=== PATIENT | female | born 1995 | race Caucasian/White ===

== ENCOUNTER 2016-09-23 19:07 | Emergency (ER) | payer SELFPAY ==
[~2016-09-23] VITALS: Ht 175.3 cm; Wt 200.0 kg
[2016-09-23 19:15] VITALS: Ht 175.3 cm; Wt 200.0 kg
== END 2016-09-23 19:14 | disposition left against medical advice (07) ==
LOC: E/R 19:07
DX: Z53.21 Procedure and treatment not carried out due to patient leaving prior to being seen by health care provider (principal)

== ENCOUNTER 2016-09-23 19:35 | Inpatient (IN) | payer MEDICAID, OTHER ==
[~2016-09-23] VITALS: Ht 175.3 cm; Wt 204.0 kg
[2016-09-23] MEDS ORDERED: LACTATED RINGER'S 1,000 ML IV SCH (20:27)
[2016-09-23] MEDS ORDERED: MAGNESIUM SULFATE 4 GM/100 ML 100 ML IV ONE (20:30)
[2016-09-23 21:46] LABS: BASOPHILS % 0.2 % (0.0-2.0); EOSINOPHILS # 0.1 10^3/ul (0.0-0.5); EOSINOPHILS % 0.6 % (0.0-7.0); HEMATOCRIT 36.1 % (37.0-47.0); HEMOGLOBIN 11.7 g/dl (12.0-16.0); LYMPHOCYTES # 3.1 10^3/ul (0.8-2.9); LYMPHOCYTES % 25.7 % (15.0-51.0); MEAN CORPUSCULAR HEMOGLOBIN 27.4 pg (29.0-33.0); MEAN CORPUSCULAR HGB CONC 32.4 g/dl (32.0-37.0); MEAN CORPUSCULAR VOLUME 84.5 fl (82.0-101.0); MEAN PLATELET VOLUME 10.7 fl (7.4-10.4); MONOCYTE # 0.8 10^3/ul (0.3-0.9); MONOCYTES % 6.4 % (0.0-11.0); NEUTROPHIL # 8.1 10^3/ul (1.6-7.5); NEUTROPHILS % 66.9 % (39.0-77.0); PLATELET COUNT 312 10^3/UL (140-415); RED BLOOD COUNT 4.27 10^6/ul (4.20-5.40); RED CELL DISTRIBUTION WIDTH 15.9 % (11.5-14.5); WHITE BLOOD COUNT 12.2 10^3/ul (4.8-10.8)
[2016-09-23 21:54] LABS: ADD UMIC YES; UR ASCORBIC ACID NEGATIVE (NEGATIVE); UR BACTERIA FEW /HPF (NONE SEEN); UR BILIRUBIN (Dip) NEGATIVE (NEGATIVE); UR BLOOD (Dip) NEGATIVE (NEGATIVE); UR CLARITY CLOUDY (CLEAR); UR COLOR YELLOW (YELLOW); UR GLUCOSE (Dip) 1+ mg/dL (NEGATIVE); UR KETONES (Dip) NEGATIVE (NEGATIVE); UR LEUKOCYTE ESTERASE (Dip) NEGATIVE Leu/ul (NEGATIVE); UR MUCUS FEW /HPF (NONE SEEN); UR NITRITE (Dip) NEGATIVE (NEGATIVE); UR RBC 2 /HPF (0-5); UR SPECIFIC GRAVITY (Dip) 1.034 (1.003-1.030); UR SQUAMOUS EPITHELIAL CELL FEW /HPF (FEW); UR TOTAL PROTEIN (Dip) 3+ mg/dl (NEGATIVE); UR UROBILINOGEN (Dip) NEGATIVE (NEGATIVE)
[2016-09-23 22:07] LABS: INR 0.87; PARTIAL THROMBOPLASTIN TIME 27.4 Sec (25.0-35.0); PROTIME 11.8 Sec (12.2-14.2); PT RATIO 0.9
[2016-09-23 22:09] LABS: ALBUMIN 2.7 g/dl (3.3-4.9); ALBUMIN/GLOBULIN RATIO 0.81; BILIRUBIN,INDIRECT 0.1 mg/dl (0-1.1); BILIRUBIN,TOTAL 0.1 mg/dl (0.2-1.3); CALCIUM 8.7 mg/dl (8.4-10.2); CREATININE 0.7 mg/dl (0.44-1.00); URIC ACID 5.5 mg/dl (3.1-7.9)
[2016-09-23] MEDS: MAGNESIUM SULFATE 20 GM/500 ML 500 ML IV SCH (22:28)
--- NOTE | 2016-09-23 22:28 | RADRPT ---
PROCEDURE: Obstetrical ultrasound for biophysical profile CLINICAL INDICATION: Biophysical profile. . TECHNIQUE: Obstetrical ultrasound of the uterus for biophysical profile. Transabdominal views are obtained. COMPARISON: 06/12/2016 FINDINGS: Visualization is markedly degraded due to patient body habitus attenuation. IMPRESSION: Visualization is markedly degraded due to patient body habitus attenuation. RPTAT: AADD .Darrell Franco MD, MD Date Time Electronically viewed and signed by .Darrell Franco MD, on 09/23/2016 22:28 .B/
[2016-09-23] MEDS ORDERED: LABETALOL HCL 20MG INJ IV ONE (22:30)
[2016-09-23] MEDS ORDERED: LACTATED RINGER'S 1,000 ML IV PRN (23:19)
[2016-09-23] MEDS ORDERED: OXYTOCIN 30 UNITS/LR 500 ML IV PRN (23:30)
[2016-09-23] MEDS ORDERED: LIDOCAINE 1% (MPF) 30 ML INJ INJ PRN (23:30)
[2016-09-23] MEDS ORDERED: OXYTOCIN 30 UNITS/LR 500 ML IV SCH ×2 (23:30)
[2016-09-23] MEDS ORDERED: BUTORPHANOL 2 MG INJ IV PRN ×2 (23:30)
[2016-09-23] MEDS ORDERED: AMPICILLIN 2 GM/NS (PMX) 100 ML IV ONE (23:30)
[2016-09-23] MEDS ORDERED: MISOPROSTOL 200 MCG TAB PR PRN (23:30)
[2016-09-23] MEDS ORDERED: IBUPROFEN 600 MG TAB PO PRN (23:30)
[2016-09-23] MEDS ORDERED: METHYLERGONOVINE 0.2 MG INJ IM PRN (23:30)
[2016-09-23] MEDS ORDERED: CARBOPROST 250 MCG INJ IM PRN (23:30)
[2016-09-24] MEDS ORDERED: LABETALOL HCL 20MG INJ IV ONE ×2
[2016-09-24] MEDS ORDERED: hydrALAzine 20 MG INJ IV ONE ×2 (00:30→11:30)
[2016-09-24] MEDS ORDERED: SALINE 0.65% 45 ML NAS SPRAY NASAL PRN (01:30)
[2016-09-24 02:30] LABS: BASOPHILS % 0.1 % (0.0-2.0); EOSINOPHILS % 0.1 % (0.0-7.0); HEMATOCRIT 37.7 % (37.0-47.0); HEMOGLOBIN 12.2 g/dl (12.0-16.0); LYMPHOCYTES # 3.4 10^3/ul (0.8-2.9); LYMPHOCYTES % 20.3 % (15.0-51.0); MEAN CORPUSCULAR HEMOGLOBIN 27.3 pg (29.0-33.0); MEAN CORPUSCULAR HGB CONC 32.4 g/dl (32.0-37.0); MEAN CORPUSCULAR VOLUME 84.3 fl (82.0-101.0); MONOCYTES % 6.2 % (0.0-11.0); NEUTROPHIL # 12.2 10^3/ul (1.6-7.5); NEUTROPHILS % 72.9 % (39.0-77.0); PLATELET COUNT 351 10^3/UL (140-415); RED BLOOD COUNT 4.47 10^6/ul (4.20-5.40); RED CELL DISTRIBUTION WIDTH 15.9 % (11.5-14.5); WHITE BLOOD COUNT 16.7 10^3/ul (4.8-10.8)
[2016-09-24 02:44] LABS: INR 0.87; PROTIME 11.8 Sec (12.2-14.2); PT RATIO 0.9
[2016-09-24 02:45] LABS: PARTIAL THROMBOPLASTIN TIME 32.3 Sec (25.0-35.0)
[2016-09-24] MEDS ORDERED: GUAIFENESIN 20 MG/ML 5ML CUP PO ONE (03:30)
[2016-09-24] MEDS ORDERED: DIPHENHYDRAMINE 50 MG INJ IV PRN (04:30)
[2016-09-24] MEDS ORDERED: FENTAnyl 2MCG/ML-ROPIV 0.2% 100 ML BAG EPI SCH ×2 (04:30→09:30)
[2016-09-24] MEDS ORDERED: ONDANSETRON 4 MG INJ IV PRN ×2 (04:30→22:30)
[2016-09-24] MEDS ORDERED: NALOXONE (0.4 MG/ML) INJ IV PRN ×2 (04:30→09:30)
[2016-09-24] MEDS ORDERED: EPHEDrine SULFATE 50 MG/5 ML SYG IV PRN (04:30)
[2016-09-24] MEDS: AMPICILLIN 1 GM/NS (PMX) 50 ML IV SCH ×6 (04:43→19:32)
[2016-09-24] MEDS ORDERED: hydrALAzine 20 MG INJ IV PRN (05:15)
[2016-09-24] MEDS ORDERED: FENTAnyl 2MCG/ML-ROPIV 0.2% 100 ML ONE (05:43)
[2016-09-24 06:29] VITALS: Ht 175.3 cm; Wt 204.0 kg
[2016-09-24] MEDS: MAGNESIUM SULFATE 20 GM/500 ML 500 ML IV SCH ×2 (07:36→19:41)
[2016-09-24] MEDS: FENTAnyl 2MCG/ML-ROPIV 0.2% 100 ML BAG EPI SCH ×2 (12:08→21:17)
[2016-09-24] MEDS ORDERED: POTASSIUM CHLORIDE 40 MEQ in LACTATED RINGER'S 1,000 ML IV SCH (13:30)
[2016-09-24] MEDS ORDERED: LABETALOL HCL 20MG INJ IV PRN (13:30)
[2016-09-24] MEDS ORDERED: OXYTOCIN 30 UNITS/LR 500 ML IV SCH ×3 (16:30→22:30)
--- NOTE | 2016-09-24 18:51 | HP ---
Date/Time of Note Date/Time of Note DATE: 09/24/16 TIME: 18:34 OB - History Hx of Present Free Text/Dictation 20 y.o primigravida at 39w6d whos's bp 190/109 with breathing difficulty in labor ,eyal q2-4min apart . according to patient had care ,denies any hx of elevated BP during or prior to .\ unable to obtain BPP due to body habitus, unable to have external monitor due to bodyhabitus. no lab is available on admission admitted for control of BP imediatly and further care for labor management. Chief Complaint: uterine contractions, high BP Estimated Due Date: Sep 25, 2016 : 1 Para: 0 Spontaneous : 0 Therapeutic : 0 Ultrasounds: No ultrasounds Obstetrical Complications: Gestational Hypertension Medical Complications: Other (morbid obesity) Past Family/Social History * Past Medical, Surgical, Family and Obstetric Histories reviewed from chart. Blood Type: Unknown Rubella: unknown RPR/VDRL: Unknown GBS Status: Unknown HBsAG: Unknown OB Admission Exam Physical Exam HEENT: WNL Heart: Rhythm Normal Lungs: Clear, Equal Abdomen: Abnormal (morbidly obese) Extremities: Edema Reflexes: Normal Cervical Dilatation: 3cm Effacement: 75% Station: -2 Membranes: Intact Heart Rate: 140's Accelerations: Accelerations Present Decelerations: No Decelerations Varibility: Moderate Contractions on Admission: < 5 Minutes Apart Intensity: Mild Last 72 hours Lab Results CBC & BMP 09/23/16 21:08 09/24/16 02:18 Liver Function Test 09/23/16 21:08 Alanine Aminotransferase (ALT/SGPT) 18 Albumin 2.7 L Alkaline Phosphatase 177 H Aspartate Amino Transf (AST/SGOT) 16 Direct Bilirubin 0.00 Total Protein 6.0 L Magnesium Level Test 09/24/16 09:26 09/24/16 12:18 Magnesium Level 5.0 H 5.3 *H OB Assessment/Plan Reason for admission: other (PIH) Induction Method: AROM Other plan: AROM internal lead IUPC pitocin augmentation labetalol magnesium sultate late hydralazine added BALTAZAR DYER MD Sep 24, 2016 18:44
[2016-09-24] MEDS ORDERED: CITRIC ACID/NA CITRATE 30 ML CUP ONE (22:23)
[2016-09-24] MEDS ORDERED: METOCLOPRAMIDE 10 MG INJ ONE (22:23)
[2016-09-24] MEDS ORDERED: OXYTOCIN 10 UNIT INJ ONE ×2 (22:26→22:30)
[2016-09-24] MEDS ORDERED: LIDOCAINE 2% (SDV) 5 ML INJ ONE ×2 (22:26→22:30)
[2016-09-24] MEDS ORDERED: PHENYLephrine (100 MCG/ML) 5ML SYG ONE (22:28)
[2016-09-24] MEDS ORDERED: OXYTOCIN 30 UNITS/LR 500 ML IV PRN (22:30)
[2016-09-24] MEDS ORDERED: MISOPROSTOL 200 MCG TAB PR PRN (22:30)
[2016-09-24] MEDS ORDERED: METOCLOPRAMIDE 10 MG INJ IV ONE (22:30)
[2016-09-24] MEDS ORDERED: CARBOPROST 250 MCG INJ IM PRN (22:30)
[2016-09-24] MEDS ORDERED: CEFAZOLIN 3 GM in DEXTROSE 5% 100 ML IV SCH (22:30)
[2016-09-24] MEDS ORDERED: METHYLERGONOVINE 0.2 MG INJ IM PRN (22:30)
[2016-09-24] MEDS ORDERED: CITRIC ACID/NA CITRATE 30 ML CUP PO ONE (22:30)
[2016-09-24] MEDS ORDERED: KETOROLAC 30 MG INJ ONE ×2 (22:46→22:47)
[2016-09-24] MEDS ORDERED: DEXAMETHASONE 4 MG/ML 1 ML INJ ONE (22:46)
--- NOTE | 2016-09-24 22:50 | OPR ---
Operative Report Planned Procedure Procedure date Sep 24, 2016 Performed by: VELMA GARCES MD Assisting provider: TERE DYER MD Anesthesia Type: epidural Procedure Description Under satisfactory [epidural] anesthesia, the patient was prepped and draped and placed in a supine position, tilted to the left. Pfannenstiel incision was made, carried through the subcutaneous tissue. Bleeders brought under control with electrocautery. Fascia incised to the length of the incision. Rectus muscles from the fascia, divided midline. Peritoneum exposed, entered through a transverse incision. Exploration of abdomen revealed gravid uterus. Bladder flap was developed. Transverse incision was made in the lower segment of the uterus. Amniotic sac ruptured. ckear amniotic fluid noted. [] Nasal oropharyngeal suction was performed. The baby was handed to the team for immediate attention. The placenta was delivered manually intact. Uterine cavity was cleaned with wet sponge and drainage established. Uterus closed in 2 layers using one monocryl[] in continuous fashion. Peritoneal cavity irrigated with warm saline. Sponge, needle and instrument count reported to be correct. . Fascia closed with [one monocryl], and skin closed with jose. Estimated blood loss 700[]mL. Post-Procedure Findings: Live Baby [], Apgars [] and [], weight [], position [], [] presentation []cord. Specimen removed: Yes Specimen description placenta Pt Condition post procedure: stable Disposition: PACU Physician Certification I, the undersigned physician, hereby certify that I have discussed the procedure described in this consent form with this patient (or the patient's legal business process representative), including: * The risk and benefits of the procedure; * Any adverse reactions that may reasonably be expected to occur; * Any alternative efficacious methods of treatment which may be medically viable ; * The potential problems that may occur during recuperation; * Potential for blood transfusion and associated risks/benefits; and * Any research or economic interest I may have regarding this treatment. I further certify that the patient/legally responsible person was encouraged to ask question and that all questions were answered. VELMA GARCES MD Sep 24, 2016 22:50
[2016-09-24] MEDS ORDERED: FENTAnyl 50 MCG/ML VIAL ONE (23:15)
[2016-09-24] MEDS ORDERED: SODIUM BICARBONATE (IV ADD) 50 ML ONE (23:38)
[2016-09-24] MEDS ORDERED: CEFAZOLIN 1 GM INJ ONE (23:39)
[2016-09-24] MEDS ORDERED: morphine SULFATE/PF (10 MG/10 ML) INJ ONE (23:40)
[2016-09-25] VITALS (14 sets, daily range): BP systolic 134–175; BP diastolic 63–89; PULSE 72–97; RESP 18–20
[2016-09-25] MEDS ORDERED: ACETAMINOPHEN 500 MG TAB PO PRN
[2016-09-25] MEDS ORDERED: MEPERIDINE 25 MG INJ IV PRN
[2016-09-25] MEDS ORDERED: morphine 4 MG/ML VIAL IV PRN
[2016-09-25] MEDS ORDERED: ONDANSETRON 4 MG INJ IV PRN
[2016-09-25] MEDS ORDERED: TRIMETHOBENZAMIDE 100 MG/ML VIAL IM PRN
[2016-09-25] MEDS ORDERED: morphine 2 MG INJ IV PRN
[2016-09-25] MEDS ORDERED: DIPHENHYDRAMINE 50 MG INJ IV PRN
[2016-09-25] MEDS ORDERED: NALOXONE (0.4 MG/ML) INJ IV PRN
[2016-09-25] MEDS ORDERED: HYDROmorphONE 1 MG/ML SYG IV PRN ×2
[2016-09-25] MEDS ORDERED: LABETALOL HCL 20MG INJ IV PRN
[2016-09-25] MEDS ORDERED: NALBUPHINE HCL (10 MG/1 ML) INJ IV PRN
[2016-09-25] MEDS ORDERED: EPHEDrine SULFATE 50 MG/5 ML SYG IV PRN
[2016-09-25 01:59] LABS: ALBUMIN/GLOBULIN RATIO 0.86
--- NOTE | 2016-09-25 02:02 | OPPN ---
Date/Time of Note Date/Time of Note DATE: 09/25/16 TIME: 02:02 Post-Anesthesia Notes Post-Anesthesia Note Activity: WNL Respiratory function: WNL Cardiovascular function: WNL Mental status: Baseline Pain reasonably controlled: Yes Hydration appropriate: Yes Nausea/Vomiting absent: Yes ANISH DAO MD Sep 25, 2016 02:02
[2016-09-25 02:07] LABS: ALBUMIN 2.5 g/dl (3.3-4.9); BILIRUBIN,INDIRECT 0.1 mg/dl (0-1.1); BILIRUBIN,TOTAL 0.1 mg/dl (0.2-1.3); CALCIUM 7.8 mg/dl (8.4-10.2); CREATININE 1.14 mg/dl (0.44-1.00); POTASSIUM 3.4 mmol/L (3.5-5.1); TOTAL PROTEIN 5.4 g/dl (6.1-8.1)
[2016-09-25] MEDS: MAGNESIUM SULFATE 20 GM/500 ML 500 ML IV SCH ×2 (02:50→10:34)
[2016-09-25] MEDS: OXYTOCIN 30 UNITS/LR 500 ML IV SCH ×2 (04:20→10:30)
[2016-09-25] MEDS ORDERED: LACTATED RINGER'S 1,000 ML IV SCH (04:20)
[2016-09-25] MEDS ORDERED: METHYLERGONOVINE 0.2 MG INJ IM PRN (04:30)
[2016-09-25] MEDS ORDERED: CARBOPROST 250 MCG INJ IM PRN (04:30)
[2016-09-25] MEDS ORDERED: NA PHOSPHATE/BIPHOS 133 ML ENEMA PR PRN (04:30)
[2016-09-25] MEDS ORDERED: LANOLIN 7 GM TUBE TOP PRN (04:30)
[2016-09-25] MEDS ORDERED: MISOPROSTOL 200 MCG TAB PR PRN (04:30)
[2016-09-25] MEDS ORDERED: OXYTOCIN 30 UNITS/LR 500 ML IV PRN (04:30)
[2016-09-25] MEDS ORDERED: NACL 0.9% 3 ML SYG IV SCH (04:30)
[2016-09-25 08:42] LABS: ABNORMAL IP MESSAGE 1; BASOPHILS % 0.1 % (0.0-2.0); HEMATOCRIT 37.7 % (37.0-47.0); LYMPHOCYTES # 1.9 10^3/ul (0.8-2.9); MEAN CORPUSCULAR HEMOGLOBIN 27.9 pg (29.0-33.0); MEAN CORPUSCULAR HGB CONC 31.8 g/dl (32.0-37.0); MEAN CORPUSCULAR VOLUME 87.7 fl (82.0-101.0); MEAN PLATELET VOLUME 10.9 fl (7.4-10.4); MONOCYTE # 1.4 10^3/ul (0.3-0.9); MONOCYTES % 5.9 % (0.0-11.0); NEUTROPHIL # 20.8 10^3/ul (1.6-7.5); NEUTROPHILS % 85.4 % (39.0-77.0); PLATELET COUNT 278 10^3/UL (140-415); POSITIVE DIFF @See below; RED CELL DISTRIBUTION WIDTH 17.1 % (11.5-14.5); WHITE BLOOD COUNT 24.3 10^3/ul (4.8-10.8)
[2016-09-25] MEDS: KETOROLAC 30 MG INJ IV PRN ×2 (10:40→18:05)
--- NOTE | 2016-09-25 12:49 | QN ---
Documentation Comment DOING WELL VSS ABD SOFT. D/C MG TODAY OVELMA WOOTEN MD Sep 25, 2016 12:49
[2016-09-25] MEDS: GUAIFENESIN/DM 5ML CUP PO PRN (16:53)
[2016-09-25] MEDS ORDERED: HYDROCODONE/APAP (5/325) TAB PO PRN ×2 (23:40)
[2016-09-26] VITALS (8 sets, daily range): BP systolic 132–177; BP diastolic 59–112; PULSE 80–104; RESP 18–20
[2016-09-26] MEDS ORDERED: hydrALAzine 20 MG INJ IV ONE ×2 (02:30→03:30)
[2016-09-26] MEDS: GUAIFENESIN/DM 5ML CUP PO PRN (02:38)
[2016-09-26] MEDS ORDERED: LABETALOL 200 MG TAB PO ONE (04:00)
[2016-09-26] MEDS: IBUPROFEN 800 MG TAB PO SCH ×3 (05:32→22:33)
[2016-09-26] MEDS ORDERED: LABETALOL 200 MG TAB PO SCH (08:00)
[2016-09-26] MEDS: LABETALOL 200 MG TAB PO SCH ×2 (09:11→20:57)
--- NOTE | 2016-09-26 12:36 | DS ---
Date/Time of Note Date/Time of Note DATE: 09/26/16 TIME: 12:36 Discharge Summary Admission/Discharge Info Admit Date/Time Sep 23, 2016 at 21:50 Discharge Date/Time Discharge Diagnosis term preg in labor Patient Condition: Good Hospital Course unremarkable Home Meds Reported Medications [None] No Conflict Check 07/05/09 Primary Care Provider Lacey Louise DO Pending Labs Laboratory Tests Test 09/25/16 13:20 Magnesium Level 7.1mg/dl (1.7-2.5) VELMA GARCES MD Sep 26, 2016 12:36
--- NOTE | 2016-09-26 12:40 | QN ---
Documentation Comment doing well vss abd soft oob d/c home on VELMA GARCES MD Sep 26, 2016 12:39
[2016-09-26 13:08] LABS: RUBELLA ANTIBODY - IGG <0.90 index
[2016-09-26] MEDS: OXYCODONE/ACETAMINOPHEN (5/325) TAB PO PRN ×2 (16:42→23:46)
[2016-09-27] VITALS: BP 140/65; PULSE 90; RESP 18
[2016-09-27 04:00] VITALS: BP 134/82; PULSE 74; RESP 18
[2016-09-27] MEDS: IBUPROFEN 800 MG TAB PO SCH ×3 (05:46→21:35)
[2016-09-27 08:35] VITALS: BP 152/72; PULSE 79; RESP 19
[2016-09-27] MEDS: LABETALOL 200 MG TAB PO SCH ×3 (08:44→21:35)
[2016-09-27] MEDS ORDERED: DIPHTH/TET/ACEL PERTUSS (ADULT) 0.5 ML VIAL IM* ONE (09:00)
[2016-09-27] MEDS ORDERED: MEASLES,MUMPS,RUBELLA VACCINE INJ SC* ONE (09:00)
[2016-09-27] MEDS: OXYCODONE/ACETAMINOPHEN (5/325) TAB PO PRN ×2 (10:11→20:12)
[2016-09-27 12:00] VITALS: BP 137/74; PULSE 86; RESP 18
--- NOTE | 2016-09-27 14:03 | PN ---
Date/Time of Note Date/Time of Note DATE: 09/27/16 TIME: 13:48 OB Subjective Subjective Subjective Patient denies any headache, blurred vision or epigastric pain. Vaginal bleeding moderate. Pumping her breast. OB Objective Objective Objective GA: A&O, NAD, Morbidly obese. Lungs: CTA bilaterally CV: RRR Abdomen;Soft, obese. Appropriate tenderness in the incision Clean dry and intact, moderate swelling at the upper border of the incision noted. No drainage Extremities: no calf tenderness, no cord palpable. negative Nisreen sign. Breast: no engorgement, no fissure, no evidence of mastitis, Hematology - 72 Hrs Test 09/25/16 06:33 White Blood Count 24.310^3/ul (4.8-10.8) #H Red Blood Count 4.3010^6/ul (4.20-5.40) Hemoglobin 12.0g/dl (12.0-16.0) Hematocrit 37.7% (37.0-47.0) Mean Corpuscular Volume 87.7fl (82.0-101.0) Mean Corpuscular Hemoglobin 27.9pg (29.0-33.0) L Mean Corpuscular Hemoglobin Concent 31.8g/dl (32.0-37.0) L Red Cell Distribution Width 17.1% (11.5-14.5) H Platelet Count 98141^3/UL (140-415) # Mean Platelet Volume 10.9fl (7.4-10.4) H Neutrophils % 85.4% (39.0-77.0) H Lymphocytes % 8.0% (15.0-51.0) L Monocytes % 5.9% (0.0-11.0) Eosinophils % 0.0% (0.0-7.0) Basophils % 0.1% (0.0-2.0) Nucleated Red Blood Cells % 0.0/100WBC (0.0-0.0) Neutrophils # 20.810^3/ul (1.6-7.5) H Lymphocytes # 1.910^3/ul (0.8-2.9) Monocytes # 1.410^3/ul (0.3-0.9) H Eosinophils # 0.010^3/ul (0.0-0.5) Basophils # 0.010^3/ul (0.0-0.1) Nucleated Red Blood Cells # 0.010^3/ul (0.0-0.0) Chemistry Test 09/24/16 18:02 09/25/16 01:31 09/25/16 06:34 09/25/16 13:20 Magnesium Level 5.9mg/dl (1.7-2.5) *H 5.8mg/dl (1.7-2.5) *H 6.6mg/dl (1.7-2.5) *H 7.1mg/dl (1.7-2.5) *H Sodium Level 137mmol/L (135-144) Potassium Level 3.4mmol/L (3.5-5.1) L Chloride Level 103mmol/L (97-110) Carbon Dioxide Level 25mmol/L (21-31) Anion Gap 12 (8-16) Blood Urea Nitrogen 15mg/dl (7-20) Creatinine 1.14mg/dl (0.44-1.00) H Glucose Level 143mg/dl (70-220) # Calcium Level 7.8mg/dl (8.4-10.2) L Total Bilirubin 0.1mg/dl (0.2-1.3) L Direct Bilirubin 0.00mg/dl (0.00-0.20) Indirect Bilirubin 0.1mg/dl (0-1.1) Aspartate Amino Transf (AST/SGOT) 19IU/L (15-46) Alanine Aminotransferase (ALT/SGPT) 22IU/L (13-69) Alkaline Phosphatase 157IU/L (42-121) H Total Protein 5.4g/dl (6.1-8.1) L Albumin 2.5g/dl (3.3-4.9) L Globulin 2.90g/dl (1.3-3.2) Albumin/Globulin Ratio 0.86 OB Assessment/Plan Other Assessment: POD #3 s/p LTCS for NRHFT CHTN with superimposed preclampsia, on Labetaolol 200 mg PO BID. was on magnesium for Seizure prophylaxis.off of magnesium. still elevated BP noted. required to receive IV Hydralazine. Increase dose of labetalol 200 mg TID. Will continue post op care Watch BP closely DONNA ORNELAS MD Sep 27, 2016 14:02
[2016-09-27 16:15] VITALS: BP 131/66; PULSE 81; RESP 19
[2016-09-27 20:12] VITALS: BP 141/71; PULSE 97; RESP 18
[2016-09-28 03:55] VITALS: BP 137/77; PULSE 94; RESP 19
[2016-09-28] MEDS: IBUPROFEN 800 MG TAB PO SCH ×2 (05:39→15:06)
[2016-09-28 08:30] VITALS: BP 180/108; PULSE 90
[2016-09-28] MEDS: LABETALOL 200 MG TAB PO SCH ×2 (10:16→12:27)
[2016-09-28 11:21] VITALS: BP 166/82; PULSE 92; RESP 20
[2016-09-28] MEDS: OXYCODONE/ACETAMINOPHEN (5/325) TAB PO PRN (12:29)
[2016-09-28 15:50] VITALS: BP 144/81; PULSE 91; RESP 20
== END 2016-09-28 17:20 | disposition home or self-care (01) | DRG 765 ==
LOC: OBT 19:35 → L-D 19:36 → OBT 21:50 → L-D 21:50 → PP1 09-25 04:00
PROVIDERS: ADMIT Obstetrics & Gynecology; ATTEND Obstetrics & Gynecology
PROC: 10D00Z1 Extraction of Products of Conception, Low, Open Approach (ICD-10-PCS; principal; 2016-09-24 23:00)
DX: O99.214 Obesity complicating childbirth (principal); Z68.44 Body mass index [BMI] 60.0-69.9, adult; E66.01 Morbid (severe) obesity due to excess calories; O10.92 Unspecified pre-existing hypertension complicating childbirth; Z3A.39 39 weeks gestation of pregnancy; Z37.0 Single live birth
CPT/HCPCS: 62319; 76818; 80053; 81001; 83735; 84560; 85025; 85384; 85610; 85730; 86592; 86762; 86900; 86901; 87340; 88307; 90715; 94760; 99464; G0463; J0290; J0360; J0595; J0690; J1100; J1885; J2274; J2370; J2405; J2590; J2765; J3010; J3475; J3480; J7120